=== PATIENT | male | born 1955 | race Caucasian/White ===

== ENCOUNTER 2019-01-30 17:00 | Outpatient (CLI) | payer BC | END 2019-01-30 17:01 | disposition home or self-care (01) | LOC: SLEEPLAB 17:00 | PROVIDERS: ATTEND Internal Medicine | DX: G47.33 Obstructive sleep apnea (adult) (pediatric) (principal); R06.83 Snoring; R09.89 Other specified symptoms and signs involving the circulatory and respiratory systems; R53.83 Other fatigue; R40.0 Somnolence; R35.1 Nocturia; G47.10 Hypersomnia, unspecified | CPT/HCPCS: 95806 ==

== ENCOUNTER 2019-09-06 10:09 | Outpatient (CLI) | payer BC ==
--- NOTE | 2019-09-06 10:46 | RAD ---
RIGHT KNEE 4 VIEWS: Date: 09/06/2019 HISTORY: Right knee pain. FINDINGS: There are arthritic changes of the knee. There are some small patellofemoral spurs. There is very mil d medial compartment narrowing. There is chondrocalcinosis of the meniscal cartilage seen. IMPRESSION: Very mild arthritic changes of the knee. No joint effusion. POS: [facility]
== END 2019-09-06 10:10 | disposition home or self-care (01) ==
LOC: BICRAD 10:09
PROVIDERS: ATTEND Specialist
DX: M25.561 Pain in right knee (principal); M17.11 Unilateral primary osteoarthritis, right knee